=== PATIENT | male | born 1985 | race Two or more races ===

== ENCOUNTER 2024-10-30 12:08 | Inpatient (IN) | payer OTHER ==
[2024-10-30 12:22] VITALS: BMI 27.1
[2024-10-30] MEDS ORDERED: NALOXONE (NARCAN) HCL 4 MG/0.1 ML SPRAY NS PRN ×2 (13:46→13:57)
[2024-10-30] MEDS ORDERED: BISMUTH SUBSALICYLATE 524 MG/30 ML PO PRN ×2 (13:46→13:57)
[2024-10-30] MEDS ORDERED: MAG HYDROX/AL HYDROX/SIMETH 30 ML UNIT-DOSE CUP PO PRN ×2 (13:46→13:57)
[2024-10-30] MEDS ORDERED: IBUPROFEN 600 MG TABLET (FP) PO PRN ×2 (13:46→13:57)
[2024-10-30] MEDS ORDERED: IBUPROFEN 400 MG TABLET (FP) PO PRN ×2 (13:46→13:57)
[2024-10-30] MEDS ORDERED: LOPERAMIDE HCL 2 MG CAPSULE PO PRN ×2 (13:46→13:57)
[2024-10-30] MEDS ORDERED: ACETAMINOPHEN 325 MG TABLET (FP) PO PRN ×2 (13:46→13:57)
[2024-10-30] MEDS ORDERED: BENZONATATE 200 MG CAPSULE PO PRN ×2 (13:46→13:57)
[2024-10-30] MEDS ORDERED: DICYCLOMINE HCL 10 MG CAPSULE PO PRN ×2 (13:46→13:57)
[2024-10-30] MEDS ORDERED: NICOTINE POLACRILEX 4 MG LOZENGE BC PRN (13:46)
[2024-10-30] MEDS ORDERED: NICOTINE POLACRILEX 4 MG GUM BUC PRN (13:46)
[2024-10-30] MEDS ORDERED: hydrOXYzine PAMOATE 25 MG CAPSULE (FP) PO PRN (13:46)
[2024-10-30] MEDS ORDERED: BENZOCAINE/MENTHOL (CHLORASEPTIC ) LOZENGE MM PRN ×2 (13:46→13:57)
[2024-10-30] MEDS ORDERED: POLYETHYLENE GLYCOL (HEALTHYLAX) 3350 17 GM PACKET PO PRN ×2 (13:46→13:57)
[2024-10-30] MEDS ORDERED: ONDANSETRON *ODT* 4 MG TABLET SL PRN ×2 (13:46→13:57)
[2024-10-30] MEDS ORDERED: MAGNESIUM HYDROX 2400MG/30ML ORAL SUSPENSION 30 ML CUP PO PRN ×2 (13:46→13:57)
[2024-10-30] MEDS ORDERED: guaiFENesin 600 MG TABLET.ER (FP) PO PRN ×2 (13:46→13:57)
[2024-10-30] MEDS ORDERED: NICOTINE POLACRILEX 2 MG GUM BUC PRN (13:57)
[2024-10-30] MEDS: levETIRAcetam XR 750 MG TAB PO SCH (15:37)
[2024-10-30] MEDS ORDERED: MELATONIN 5 MG TABLETS PO SCH (22:00)
[2024-10-30] MEDS ORDERED: THIAMINE 100 MG TABLET PO SCH (22:00)
[2024-10-30] MEDS: THIAMINE 100 MG TABLET PO SCH (22:19)
[2024-10-30] MEDS: MELATONIN 5 MG TABLETS PO SCH (22:19)
[2024-10-30] MEDS: chlordiazePOXIDE HCL 25 MG CAPSULE PO SCH (22:21)
[2024-10-31] MEDS ORDERED: PRENATAL VITAMINS W/ FOLIC ACID TABLET (FP) PO SCH (10:00)
[2024-10-31] MEDS: levETIRAcetam XR 750 MG TAB PO SCH (10:13)
[2024-10-31] MEDS: PRENATAL VITAMINS W/ FOLIC ACID TABLET (FP) PO SCH (10:13)
[2024-10-31] MEDS: NICOTINE 14 MG/24 HOURS TOPICAL PATCH TD SCH (10:13)
[2024-10-31 14:12] LABS: HIV INTERPRETATION NEGATIVE (NEGATIVE)
[2024-10-31] MEDS: chlordiazePOXIDE HCL 25 MG CAPSULE PO PRN (18:23)
[2024-10-31] MEDS: hydrOXYzine PAMOATE 25 MG CAPSULE (FP) PO PRN (22:36)
[2024-10-31] MEDS: METHOCARBAMOL 500 MG TABLET PO PRN (22:37)
[2024-11-01] MEDS: chlordiazePOXIDE HCL 25 MG CAPSULE PO SCH (05:30)
[2024-11-01 06:19] VITALS: BP 92/60; PULSE 60; RESP 17; TEMP 98.6
[2024-11-01] MEDS: NALOXONE (NYS OPIOID OVERDOSE PROGRAM) 4 MG/0.1 ML SPRAY NS SCH (09:45)
[2024-11-02] MEDS ORDERED: chlordiazePOXIDE HCL 10 MG CAPSULE PO PRN
[2024-11-02] MEDS ORDERED: chlordiazePOXIDE HCL 10 MG CAPSULE PO SCH (05:00)
[2024-11-03] MEDS ORDERED: chlordiazePOXIDE HCL 10 MG CAPSULE PO SCH (05:00)
[2024-11-04] MEDS ORDERED: chlordiazePOXIDE HCL 10 MG CAPSULE PO ONE (05:00)
== END 2024-11-01 09:12 | disposition home or self-care (01) | DRG 774 ==
LOC: YASAS 12:08 → Y3N 15:19
PROVIDERS: ADMIT Allergy & Immunology; ATTEND Surgery
PROC: HZ2ZZZZ Detoxification Services for Substance Abuse Treatment (ICD-10-PCS; principal; 2024-10-30)
DX: F10.20 Alcohol dependence, uncomplicated (principal); F14.10 Cocaine abuse, uncomplicated; F17.210 Nicotine dependence, cigarettes, uncomplicated; R56.1 Post traumatic seizures; Z20.822 Contact with and (suspected) exposure to COVID-19
CPT/HCPCS: 0241U-QW; 36415; 80307; 87389; 93005; 93010

== ENCOUNTER 2025-06-20 14:02 | Inpatient (IN) | payer OTHER ==
[2025-06-20] MEDS ORDERED: guaiFENesin 600 MG TABLET.ER (FP) PO PRN (14:28)
[2025-06-20] MEDS ORDERED: MAG HYDROX/AL HYDROX/SIMETH 30 ML UNIT-DOSE CUP PO PRN (14:28)
[2025-06-20] MEDS ORDERED: BENZOCAINE/MENTHOL (CHLORASEPTIC ) LOZENGE MM PRN (14:28)
[2025-06-20] MEDS ORDERED: ACETAMINOPHEN 325 MG TABLET (FP) PO PRN (14:28)
[2025-06-20] MEDS ORDERED: ONDANSETRON *ODT* 4 MG TABLET SL PRN (14:28)
[2025-06-20] MEDS ORDERED: DICYCLOMINE HCL 10 MG CAPSULE PO PRN (14:28)
[2025-06-20] MEDS ORDERED: MAGNESIUM HYDROX 2400MG/30ML ORAL SUSPENSION 30 ML CUP PO PRN (14:28)
[2025-06-20] MEDS ORDERED: NALOXONE (NARCAN) HCL 4 MG/0.1 ML SPRAY NS PRN (14:28)
[2025-06-20] MEDS ORDERED: IBUPROFEN 400 MG TABLET (FP) PO PRN (14:28)
[2025-06-20] MEDS ORDERED: METHOCARBAMOL 500 MG TABLET PO PRN (14:28)
[2025-06-20] MEDS ORDERED: hydrOXYzine PAMOATE 25 MG CAPSULE (FP) PO PRN (14:28)
[2025-06-20] MEDS ORDERED: IBUPROFEN 600 MG TABLET (FP) PO PRN (14:28)
[2025-06-20] MEDS ORDERED: POLYETHYLENE GLYCOL (HEALTHYLAX) 3350 17 GM PACKET PO PRN (14:28)
[2025-06-20] MEDS ORDERED: NICOTINE POLACRILEX 2 MG GUM BUC PRN (14:28)
[2025-06-20] MEDS ORDERED: BENZONATATE 200 MG CAPSULE PO PRN (14:28)
[2025-06-20] MEDS ORDERED: BISMUTH SUBSALICYLATE 524 MG/30 ML PO PRN (14:28)
[2025-06-20] MEDS ORDERED: LOPERAMIDE HCL 2 MG CAPSULE PO PRN (14:28)
[2025-06-20 14:46] VITALS: BMI 28.3
[2025-06-20] MEDS ORDERED: NICOTINE 21 MG/24 HOURS TOPICAL PATCH ONE (16:46)
[2025-06-20] MEDS ORDERED: PRENATAL VITAMINS W/ FOLIC ACID TABLET (FP) PO ONE (16:46)
[2025-06-20] MEDS: NICOTINE 21 MG/24 HOURS TOPICAL PATCH TD SCH (16:48)
[2025-06-20] MEDS: PRENATAL VITAMINS W/ FOLIC ACID TABLET (FP) PO SCH (16:49)
[2025-06-20] MEDS: THIAMINE 100 MG TABLET PO SCH (22:27)
[2025-06-20] MEDS: MELATONIN 5 MG TABLETS PO SCH (22:27)
[2025-06-21] MEDS: NALTREXONE HCL 50 MG TABLET PO SCH (10:30)
[2025-06-21] MEDS: levETIRAcetam XR 750 MG TAB PO SCH (11:26)
[2025-06-21 12:02] LABS: MCHC 34.2 g/dl (32.3-36.5); MEAN CELL VOLUME 85.2 fl (79.0-92.2); MEAN PLT VOLUME 9.5 fl (9.4-12.4); RDW 13.6 % (12.0-15.6)
[2025-06-21 14:03] LABS: CO2 28 mmol/L (21-32); GLUCOSE,RANDOM 93 mg/dL (74-106)
[2025-06-21 14:06] LABS: CREATININE 0.8 mg/dL (0.55-1.3)
[2025-06-21 14:08] LABS: TOT PROT 6.7 g/dl (6.4-8.2)
[2025-06-21 14:09] LABS: ALK PHOS 55 U/L (45-117); SGOT/AST 15 U/L (15-37)
[2025-06-21 14:25] LABS: SGPT/ALT 23 U/L (13-61)
[2025-06-23 09:11] VITALS: BP 117/69; PULSE 55; RESP 18; TEMP 96.9
== END 2025-06-23 13:18 | disposition home or self-care (01) | DRG 775 ==
LOC: YASAS 14:02 → Y3N 16:56
PROVIDERS: ADMIT Allergy & Immunology; ATTEND Allergy & Immunology
PROC: HZ2ZZZZ Detoxification Services for Substance Abuse Treatment (ICD-10-PCS; principal; 2025-06-20)
DX: F10.230 Alcohol dependence with withdrawal, uncomplicated (principal); G40.909 Epilepsy, unspecified, not intractable, without status epilepticus; G47.00 Insomnia, unspecified; F17.210 Nicotine dependence, cigarettes, uncomplicated
CPT/HCPCS: 36415; 80053; 80305; 80307; 85027; 86780; 93005; 93010